=== PATIENT | female | born 1960 | race Caucasian/White ===

== ENCOUNTER → 2017-12-31 20:13 | Outpatient (REF) | payer BC, MEDICARE, SELFPAY | LOC: LAB 20:13 | PROVIDERS: Visit Provider Nurse Practitioner Family | DX: J00 Acute nasopharyngitis [common cold] (principal) ==

== ENCOUNTER → 2018-10-20 09:55 | Outpatient (CLI) | payer MEDICARE, BC, SELFPAY ==
--- NOTE | 2018-10-20 10:02 | MM_ITS ---
MM Dig screening mamm BI w/CAD CAD Screening COMPARISON: Digital mammograms with CAD 02/10/2017 and 03/10/2013 INDICATION: There is no personal or family history of breast cancer TECHNIQUE: Standard CC and MLO images were obtained. R2 CAD reviewed. FINDINGS: Scattered fibroglandular densities are seen throughout both breasts. There are multiple mole markers left breast. There are multiple scattered benign-appearing microcalcifications in each breast. There is a stable asymmetric density upper outer quadrant left breast likely focal asymmetric glandular tissue. There is no suspicious lesion and there are no suspicious microcalcifications. IMPRESSION: Fibrofatty parenchyma no suspicious lesion seen BI-RADS Category: 2 Benign Finding(s) RECOMMENDED FOLLOW-UP: 1YR - 1 YEAR FOLLOW-UP (A letter has been sent to the patient regarding results of the study.)
== END ==
PROVIDERS: PCP Emergency Medicine; Visit Provider Emergency Medicine
DX: Z12.31 Encounter for screening mammogram for malignant neoplasm of breast (principal)
CPT/HCPCS: 77067

== ENCOUNTER → 2018-11-08 10:53 | Outpatient (CLI) | payer MEDICARE, BC, SELFPAY ==
--- NOTE | 2018-11-08 10:57 | XR_ITS ---
XR knee RT 3V HISTORY: ITS.REASON: pain ORDERING PHYSICIAN: Kristen Dixon APRN PATIENT AGE: 57 years COMPARISON: 06/05/2010 FINDINGS: There are mild osteoarthritic changes involving all 3 compartments slightly worse than when compared to the previous exam. No fracture or dislocation. No lytic or blastic change. IMPRESSION: Mild osteoarthritis slightly worse
--- NOTE | 2018-11-08 10:57 | XR_ITS ---
XR knee LT 3V HISTORY: ITS.REASON: pain ORDERING PHYSICIAN: Kristen Dixon APRN PATIENT AGE: 57 years COMPARISON: None FINDINGS: No fracture or dislocation. No lytic or blastic change. Normal mineralization. Its mild osteoarthritic changes involve all 3 compartments No other significant findings IMPRESSION: Mild osteoarthritis otherwise negative
[2018-11-08 11:58] LABS: Erythrocyte Sedimentation Rate 10 mm/hr (0-30)
[2018-11-08 14:20] LABS: C-Reactive Protein 0.5 mg/L (0.0-0.9)
[2018-11-09 14:18] LABS: Anti-Centromere B Antibodies <0.2 AI (0.0-0.9); Anti-Jo-1 <0.2 AI (0.0-0.9); Anti-Smith Antibody <0.2 AI (0.0-0.9); Antichromatin Antibodies <0.2 AI (0.0-0.9); Antiscleroderma-70 Antibodies <0.2 AI (0.0-0.9); RNP Antibodies 0.3 AI (0.0-0.9); Sjogren's Anti-SS-A <0.2 AI (0.0-0.9); Sjogren's Anti-SS-B <0.2 AI (0.0-0.9)
[2018-11-11 06:25] LABS: Anti-Cyclic Citrullinated Pept <1 units (0-19); Anti-DNA (DS) Ab Qn <1 IU/mL (0-9); RA Latex Turbid. <10.0 IU/mL (0.0-13.9)
== END ==
PROVIDERS: PCP Nurse Practitioner Family; Visit Provider Nurse Practitioner Family
DX: M25.561 Pain in right knee (principal); M25.562 Pain in left knee
CPT/HCPCS: 36415; 73562; 85651; 86140; 86200; 86225; 86235; 86431

== ENCOUNTER → 2018-12-02 08:35 | Outpatient (CLI) | payer MEDICARE, BC, SELFPAY ==
--- NOTE | 2018-12-02 08:39 | XR_ITS ---
XR knee LT 4V HISTORY: ITS.REASON: bilateral knee pain ORDERING PHYSICIAN: Alphonse Cole MD PATIENT AGE: 57 years COMPARISON: 11/08/2018. FINDINGS: Bone density remains normal. The moderate narrowing of the medial joint compartment with condyle and plateau spurring remains stable. There is stable mild varus angulation. There are small posterior patellar spur. There is no acute fracture or joint effusion. Soft tissues are otherwise unremarkable. Impression: No change. Osteoarthritis.
--- NOTE | 2018-12-02 08:39 | XR_ITS ---
XR knee RT 4V HISTORY: ITS.REASON: bilateral knee pain ORDERING PHYSICIAN: Alphonse Cole MD PATIENT AGE: 57 years COMPARISON: 11/08/2018. FINDINGS: Bone density remains normal. There are stable moderate narrowing of the medial joint compartment with condyle and plateau spurring. There is posterior patellar spurs well. There is no acute fracture or joint effusion. There is stable mild varus angulation. Soft tissues are unremarkable. Impression: No change. Osteoarthritis as described.
== END ==
PROVIDERS: PCP Emergency Medicine; Visit Provider Orthopaedic Surgery
DX: M25.561 Pain in right knee (principal); M25.562 Pain in left knee
CPT/HCPCS: 73564

== ENCOUNTER → 2019-04-28 12:16 | Outpatient (CLI) | payer MEDICARE, BC, SELFPAY ==
--- NOTE | 2019-04-28 | ECG_ITS ---
APPROVED REPORT Exam: Resting ECG HR:76 bpm ECG Measurements Heart Rate 76 AXES [place] 162 P 48 QRSd 128 QRS -51 QT 402 T 20 QTc 452 <Conclusion> Normal sinus rhythm Right bundle branch block Left anterior fascicular block Bifascicular block Minimal voltage criteria for LVH, may be normal variant Abnormal ECG Electronically signed by : Maikel Parks, 05/01/2019 16:58:06
[2019-04-28 13:13] LABS: Basophils % 0.2 % (0.1-2.0); Eosinophils # 0.1 K/mm3 (0.0-0.4); Eosinophils % 0.5 % (0.1-12.0); Hematocrit 45.2 % (37.0-47.0); Lymphocytes # 2.2 K/mm3 (0.7-4.5); Lymphocytes % 21.4 % (10-50); Mean Corpuscular HGB Conc 33.1 g/dL (31.8-35.4); Mean Corpuscular Hemoglobin 30.6 pg (27.0-31.2); Mean Corpuscular Volume 92.3 fl (81-99); Mean Platelet Volume 8.5 fl (7.4-10.4); Monocytes # 0.4 K/mm3 (0.1-1.0); Monocytes % 3.9 % (1.7-9.3); Neutrophils # 7.7 K/mm3 (1.8-7.8); Neutrophils % 73.9 % (37.0-80.0); Platelet Count 220 K/mm3 (142-424); Red Blood Count 4.89 M/mm3 (4.20-5.40); Red Cell Distribution Width 13.3 % (11.5-17.5); White Blood Count 10.5 K/mm3 (4.8-10.8)
[2019-04-28 14:44] LABS: Alanine Aminotransferase 22 U/L (12-78); Albumin Level 3.3 gm/dL (3.4-5.0); Alkaline Phosphatase 81 U/L (46-116); Anion Gap 10.5 mEq/L (5-15); Aspartate Amino Transferase 12 U/L (15-37); Bilirubin,Total 0.3 mg/dL (0.2-1.0); Blood Urea Nitrogen 15 mg/dL (7-18); Carbon Dioxide 30 mmol/L (21.0-32.0); Chloride 108 mmol/L (98-107); Chol/HDL Ratio 2.6 (1-3.5); Cholesterol 123 mg/dL (140-200); Creatinine,Serum 0.89 mg/dL (0.55-1.02); Estimated Glomerular Filt Rate 65 ml/min (>60); GFR (African American) 79 ML/MIN (>60); Globulin 3.2 gm/dl (1.3-3.2); Glucose 137 mg/dL (74-106); HDL Cholesterol 47 mg/dL (29-89); LDL Cholesterol 41 mg/dL (0-130); Potassium 4.5 mmoL/L (3.5-5.1); Sodium 144 mmol/L (136-145); Thyroid Stimulating Hormone 1.22 uIU/ml (0.358-3.740); Total Protein,Serum 6.5 gm/dL (6.4-8.2); Triglycerides 174 mg/dL (30-200); VLDL Cholesterol 35 mg/dL (0-40)
[2019-04-28 15:11] LABS: Hemoglobin A1C 6.8 % (0.0-7.0)
== END ==
PROVIDERS: PCP Emergency Medicine; Visit Provider Nurse Practitioner Psychiatric/Mental Health
DX: F20.1 Disorganized schizophrenia (principal); Z79.899 Other long term (current) drug therapy
CPT/HCPCS: 36415; 80053; 80061; 83036; 84443; 85025; 93005

== ENCOUNTER → 2020-01-29 12:52 | Outpatient (CLI) | payer MEDICARE, BC, SELFPAY ==
--- NOTE | 2020-01-29 12:58 | XR_ITS ---
PROCEDURE: XR KNEE LT 4V CLINICAL INDICATION: left knee pain COMPARISON: No exams were available for comparison FINDINGS: No fracture or dislocation. No lytic or blastic change. There is normal mineralization. Moderate osteoarthritic changes are present at the medial compartment and patellofemoral joint. Other findings:None. IMPRESSION: Moderate osteoarthritis Dictated by: Rito Tamayo MD 01/29/2020 13:25 Rito Tamayo MD in [place] 01/29/2020 13:25
--- NOTE | 2020-01-29 12:58 | XR_ITS ---
PROCEDURE: XR KNEE RT 4V CLINICAL INDICATION: right knee pain COMPARISON: No exams were available for comparison FINDINGS: No fracture or dislocation. No lytic or blastic change. There is normal mineralization. There are moderate osteoarthritic changes at the medial compartment and patellofemoral joint. Other findings:Prominent osteophytes are present at the distal femur posteriorly and proximal tibia as well as posterior inferior patella IMPRESSION: Moderate osteoarthritis Dictated by: Rito Tamayo MD 01/29/2020 13:24 Rito Tamayo MD in [place] 01/29/2020 13:24
== END ==
PROVIDERS: PCP Emergency Medicine; Visit Provider Orthopaedic Surgery
DX: M17.12 Unilateral primary osteoarthritis, left knee (principal); M17.11 Unilateral primary osteoarthritis, right knee
CPT/HCPCS: 73564

== ENCOUNTER → 2020-08-30 14:48 | Outpatient (CLI) | payer MEDICARE, BC, SELFPAY ==
[2020-08-30 15:11] LABS: Basophils % 0.4 % (0.1-2.0); Eosinophils % 0.2 % (0.1-12.0); Hematocrit 45.7 % (37.0-47.0); Hemoglobin 14.7 g/dL (12.2-16.2); Lymphocytes # 2.7 K/mm3 (0.7-4.5); Mean Corpuscular HGB Conc 32.1 g/dL (31.8-35.4); Mean Corpuscular Hemoglobin 29.6 pg (27.0-31.2); Mean Corpuscular Volume 92.2 fl (81-99); Mean Platelet Volume 9.7 fl (7.4-10.4); Monocytes # 0.4 K/mm3 (0.1-1.0); Monocytes % 6.2 % (1.7-9.3); Neutrophils # 2.8 K/mm3 (1.8-7.8); Neutrophils % 47.2 % (37.0-80.0); Platelet Count 264 K/mm3 (142-424); Red Blood Count 4.95 M/mm3 (4.20-5.40); Red Cell Distribution Width 13.4 % (11.5-17.5); White Blood Count 5.9 K/mm3 (4.8-10.8)
[2020-08-30 15:13] LABS: Alanine Aminotransferase 16 U/L (12-78); Albumin Level 3.7 g/dl (3.5-5.0); Albumin/Globulin Ratio 1.3 (1.1-1.8); Alkaline Phosphatase 74 U/L (38-126); Anion Gap 10.5 mEq/L (5-15); Aspartate Amino Transferase 22 U/L (14-36); Bilirubin,Total 0.6 mg/dl (0.2-1.3); Blood Urea Nitrogen 17 mg/dl (7-17); Calcium 9.2 mg/dl (8.4-10.2); Carbon Dioxide 28 mmol/L (22.0-30.0); Chloride 107 mmol/L (98-107); Chol/HDL Ratio 2.5 (1-3.5); Cholesterol 131 mg/dl (140-200); Estimated Glomerular Filt Rate 73 ml/min (>60); GFR (African American) 89 ML/MIN (>60); Globulin 2.8 g/dL (1.3-3.2); Glucose 99 mg/dl (74-100); HDL Cholesterol 53 mg/dl (40-60); Potassium 4.5 mmoL/L (3.5-5.1); Sodium 141 mmol/L (136-145); Total Protein,Serum 6.5 g/dl (6.3-8.2); Triglycerides 87 mg/dl (30-150); VLDL Cholesterol 17 mg/dL (0-40)
[2020-08-30 15:24] LABS: Direct LDL Cholesterol 47.08 mg/dL (100-129)
[2020-08-30 15:29] LABS: 25-OH Vitamin D, Total 26.2 ng/mL (30-100)
[2020-08-30 15:30] LABS: Free T4 (Free Thyroxine) 1.22 ng/dl (0.78-2.19)
[2020-08-30 15:44] LABS: Thyroid Stimulating Hormone 1.75 uIU/mL (0.465-4.68)
== END ==
PROVIDERS: Visit Provider Emergency Medicine
DX: E66.9 Obesity, unspecified (principal); Z00.00 Encounter for general adult medical examination without abnormal findings; I10 Essential (primary) hypertension; E55.9 Vitamin D deficiency, unspecified; E78.5 Hyperlipidemia, unspecified; Z68.35 Body mass index [BMI] 35.0-35.9, adult
CPT/HCPCS: 80053; 80061; 82306; 84439; 84443; 85025

== ENCOUNTER → 2020-09-06 08:39 | Outpatient (CLI) | payer MEDICARE, BC, SELFPAY ==
--- NOTE | 2020-09-06 08:39 | MM_ITS ---
PROCEDURE: MM DIG SCREENING MAMM BI W/CAD Digital Breast Tomosynthesis Included CLINICAL INDICATION: screening There is no personal or family history of breast cancer COMPARISON: MG DMSB DIG MAMM-SCREEN BOBO from 03/10/2013 MG DMSB DIG MAMM-SCREEN BOBO W/CAD from 02/10/2017 MG DIG MAMM-SCREEN BOBO from 10/20/2018 TECHNIQUE: Standard CC and MLO images and 3D Tomosynthesis was obtained. R2 CAD reviewed. FINDINGS: Diffuse scattered fibroglandular densities are seen throughout both breast. There are multiple iqy-ckovgodw-cx-count appearing microcalcifications in each breast. There is a stable asymmetric density upper central portion left breast likely asymmetric glandular elements. There is a mole marker left breast. There are stable tiny benign-appearing nodular densities right breast. There is no suspicious lesion in either breast and no suspicious microcalcifications. There are fatty replaced nodes in both axilla. IMPRESSION: Fibrofatty parenchyma with no suspicious lesions seen BI-RAD Category: 2 Benign Finding(s) FOLLOW-UP: 1YR 1 Year Follow-up (A letter has been sent to the patient regarding results of the study.) Dictated by: Dr. Dimitris Brooke MD 09/11/2020 20:04 Dr. Dimitris Brooke MD in [place] 09/11/2020 20:04
== END ==
PROVIDERS: PCP Emergency Medicine; Visit Provider Emergency Medicine
DX: Z12.31 Encounter for screening mammogram for malignant neoplasm of breast (principal)
CPT/HCPCS: 77063; 77067

== ENCOUNTER → 2021-01-27 17:45 | Outpatient (CLI) | payer MEDICARE, BC, SELFPAY ==
[2021-01-27 19:52] LABS: Basophils # 0.1 K/mm3 (0-0.2); Basophils % 0.9 % (0.1-2.0); Eosinophils # 0.1 K/mm3 (0.0-0.4); Eosinophils % 0.9 % (0.1-12.0); Hematocrit 47.3 % (37.0-47.0); Hemoglobin 14.6 g/dL (12.2-16.2); Lymphocytes # 2.4 K/mm3 (0.7-4.5); Mean Corpuscular HGB Conc 30.9 g/dL (31.8-35.4); Mean Corpuscular Hemoglobin 30.5 pg (27.0-31.2); Mean Corpuscular Volume 98.8 fl (81-99); Mean Platelet Volume 10.1 fl (7.4-10.4); Monocytes # 0.4 K/mm3 (0.1-1.0); Monocytes % 5.9 % (1.7-9.3); Neutrophils # 4.3 K/mm3 (1.8-7.8); Neutrophils % 59.2 % (37.0-80.0); Platelet Count 287 K/mm3 (142-424); Red Blood Count 4.79 M/mm3 (4.20-5.40); Red Cell Distribution Width 13.2 % (11.5-17.5); White Blood Count 7.3 K/mm3 (4.8-10.8)
[2021-01-27 19:58] LABS: Chloride 102 mmol/L (98-107); Potassium 5.2 mmoL/L (3.5-5.1); Sodium 143 mmol/L (136-145)
[2021-01-27 20:00] LABS: Blood Urea Nitrogen 13 mg/dl (7-17); Estimated Glomerular Filt Rate 73 ml/min (>60); GFR (African American) 88 ML/MIN (>60)
[2021-01-27 20:01] LABS: Alanine Aminotransferase 25 U/L (12-78); Albumin Level 4.4 g/dl (3.5-5.0); Albumin/Globulin Ratio 1.5 (1.1-1.8); Alkaline Phosphatase 75 U/L (38-126); Anion Gap 15.2 mEq/L (5-15); Aspartate Amino Transferase 30 U/L (14-36); Bilirubin,Total 0.5 mg/dl (0.2-1.3); Carbon Dioxide 31 mmol/L (22.0-30.0); Chol/HDL Ratio 1.9 (1-3.5); Cholesterol 160 mg/dl (140-200); Glucose 105 mg/dl (74-100); HDL Cholesterol 86 mg/dl (40-60); Total Protein,Serum 7.4 g/dl (6.3-8.2); Triglycerides 101 mg/dl (30-150); VLDL Cholesterol 20 mg/dL (0-40)
[2021-01-27 20:18] LABS: Free T4 (Free Thyroxine) 1.17 ng/dl (0.78-2.19)
[2021-01-27 20:21] LABS: 25-OH Vitamin D, Total 99.3 ng/mL (30-100)
[2021-01-27 20:31] LABS: Thyroid Stimulating Hormone 1.44 uIU/mL (0.465-4.68)
[2021-01-27 20:53] LABS: Direct LDL Cholesterol 53.93 mg/dL (100-129)
== END ==
PROVIDERS: Visit Provider Emergency Medicine
DX: E66.9 Obesity, unspecified (principal); I10 Essential (primary) hypertension; R32 Unspecified urinary incontinence; E55.9 Vitamin D deficiency, unspecified; Z68.37 Body mass index [BMI] 37.0-37.9, adult
CPT/HCPCS: 80053; 80061; 82306; 84439; 84443; 85025; 87086

== ENCOUNTER → 2021-05-13 10:27 | Outpatient (CLI) | payer MEDICARE, BC, SELFPAY ==
--- NOTE | 2021-05-13 10:35 | XR_ITS ---
PROCEDURE: XR KNEE RT 4V CLINICAL INDICATION: right knee pain COMPARISON: CR XR KNEE LT 4V from 01/29/2020 CR XR KNEE RT 4V from 01/29/2020 FINDINGS: Moderate osteoarthritic changes are present at the medial compartment and patellofemoral joint with mild osteoarthritis of the lateral compartment. Prominent hypertrophic changes are present at the tibial spines and there is bony spurring along the posterior patella and distal femur and proximal tibia. No fracture or dislocation. No lytic or blastic change. Sclerotic focus is present at the left femoral metaphyseal region and possibly due to a bone island IMPRESSION: No change moderate osteoarthritis of the right knee Dictated by: Rito Tamayo MD 05/13/2021 14:45 Rito Tamayo MD in [place] 05/13/2021 14:45
--- NOTE | 2021-05-13 10:35 | XR_ITS ---
PROCEDURE: XR KNEE LT 4V CLINICAL INDICATION: left knee pain COMPARISON: CR XR KNEE LT 4V from 01/29/2020 CR XR KNEE RT 4V from 01/29/2020 FINDINGS: No fracture or dislocation. No lytic or blastic change. There is normal mineralization. There are moderate osteoarthritic changes of the left knee with loss of joint space medially and osteophyte formation. There is some osteosclerosis noted along the medial aspect of the proximal tibia. Spurring is noted of the tibial spines. Moderate osteoarthritis also of the patellofemoral joint with mild osteoarthritis of the lateral compartment. Overall no significant change. IMPRESSION: Moderate osteoarthritic changes the left knee overall not significantly changed. Dictated by: Rito Tamayo MD 05/13/2021 14:59 Rito Tamayo MD in [place] 05/13/2021 14:59
== END ==
PROVIDERS: PCP Emergency Medicine; Visit Provider Orthopaedic Surgery
DX: M25.562 Pain in left knee (principal); M25.561 Pain in right knee
CPT/HCPCS: 73564

== ENCOUNTER → 2021-12-16 16:24 | Outpatient (CLI) | payer MEDICARE, BC, SELFPAY ==
--- NOTE | 2021-12-16 16:30 | XR_ITS ---
PROCEDURE INFORMATION: Exam: XR Right Knee Exam date and time: 12/16/2021 4:43 PM Age: 60 years old Clinical indication: Pain; Knee; Right; Additional info: Knee pain TECHNIQUE: Imaging protocol: Radiologic exam of the Right knee. Views: 4 or more views. COMPARISON: CR XR KNEE RT 4V 05/13/2021 10:36 AM FINDINGS: Bones/joints: Moderate to marked degenerative arthritic type changes medial knee compartment. Mild-moderate patellofemoral degenerative changes. Findings not significantly changed compared with the 05/13/2021 examination. Soft tissues: Mild regions of prepatellar pretibial bursitis. IMPRESSION: 1. Moderately severe degenerative osteoarthritis medial knee compartment. 2. No evidence of acute osseous injury. 3. Recommend follow-up with magnetic resonance imaging to further evaluate for meniscal and/or ligamentous injury.
== END ==
PROVIDERS: PCP Emergency Medicine; Visit Provider Orthopaedic Surgery
DX: M25.561 Pain in right knee (principal)
CPT/HCPCS: 73564

== ENCOUNTER → 2022-01-19 14:10 | Outpatient (CLI) | payer MEDICARE, BC, SELFPAY | PROVIDERS: PCP Emergency Medicine; Visit Provider Nurse Practitioner Psychiatric/Mental Health | DX: F20.1 Disorganized schizophrenia (principal) ==

== ENCOUNTER → 2022-03-06 14:00 | Outpatient (CLI) | payer MEDICARE, BC, SELFPAY ==
[2022-03-06 18:29] LABS: Basophils # 0.1 K/mm3 (0-0.2); Basophils % 0.9 % (0.1-2.0); Eosinophils # 0.1 K/mm3 (0.0-0.4); Hematocrit 44.4 % (37.0-47.0); Hemoglobin 14.7 g/dL (12.2-16.2); Lymphocytes % 24.7 % (10-50); Mean Corpuscular HGB Conc 33.1 g/dL (31.8-35.4); Mean Corpuscular Hemoglobin 31.6 pg (27.0-31.2); Mean Corpuscular Volume 95.6 fl (81-99); Mean Platelet Volume 9.4 fl (7.4-10.4); Monocytes # 0.4 K/mm3 (0.1-1.0); Monocytes % 4.7 % (1.7-9.3); Neutrophils # 5.5 K/mm3 (1.8-7.8); Neutrophils % 68.7 % (37.0-80.0); Platelet Count 243 K/mm3 (142-424); Red Blood Count 4.64 M/mm3 (4.20-5.40)
[2022-03-06 18:32] LABS: Alanine Aminotransferase 23 U/L (12-78); Albumin Level 3.6 g/dl (3.5-5.0); Albumin/Globulin Ratio 1.4 (1.1-1.8); Alkaline Phosphatase 102 U/L (38-126); Anion Gap 11.7 mEq/L (5-15); Aspartate Amino Transferase 27 U/L (14-36); Blood Urea Nitrogen 18 mg/dl (7-17); Calcium 8.8 mg/dl (8.4-10.2); Carbon Dioxide 31 mmol/L (22.0-30.0); Chloride 102 mmol/L (98-107); Chol/HDL Ratio 2.7 (1-3.5); Cholesterol 132 mg/dl (140-200); Estimated Glomerular Filt Rate 63 ml/min (>60); GFR (African American) 77 ML/MIN (>60); Globulin 2.5 g/dL (1.3-3.2); Glucose 158 mg/dl (74-100); HDL Cholesterol 49 mg/dl (40-60); Potassium 4.7 mmoL/L (3.5-5.1); Sodium 140 mmol/L (136-145); Total Protein,Serum 6.1 g/dl (6.3-8.2); Triglycerides 269 mg/dl (30-150); VLDL Cholesterol 54 mg/dL (0-40)
[2022-03-06 18:33] LABS: Bilirubin,Total < 0.1 mg/dl (0.2-1.3)
[2022-03-06 18:42] LABS: Direct LDL Cholesterol 48.47 mg/dL (100-129)
[2022-03-06 18:49] LABS: Hemoglobin A1C 6.1 % (4.0-6.0)
== END ==
PROVIDERS: PCP Family Medicine; Visit Provider Family Medicine
DX: E78.5 Hyperlipidemia, unspecified (principal); R73.09 Other abnormal glucose
CPT/HCPCS: 80053; 80061; 83036; 85025

== ENCOUNTER 2022-06-16 10:52 | Observation (INO) | payer MEDICARE, BC, SELFPAY ==
--- NOTE | 2022-06-02 13:39 | SW/DCPLANNER ---
Addendum entered by Paige Cai RN 06/17/22 15:44: Patient clinical faxed to [facility] this AM. Patient has been accepted and will discharge to [facility] today. Addendum entered by Heather Pineda 06/16/22 11:45: Debby sena/ [facility] stated that she will have a bed available for this patient once medically stable for discharge. Addendum entered by Heather Pineda 06/02/22 13:48: Patient's POA contacted me back and stated that they are interested in [facility] at time of discharge. I will contact [facility] and fax patient information on this patient. POA also stated that if [facility] can not accept they would be interested in [facility] or [facility]. Original Note: I attempted to contact this patient regarding upcoming TKA: no answer VM left at this time.
[2022-06-09 14:34] VITALS: BMI 38.7
[2022-06-16] VITALS (24 sets, daily range): BP systolic 107–170; BP diastolic 58–99; PULSE 66–92; RESP 12–20; TEMP 36.1–43; O2SAT 92–100; BMI 41.4
--- NOTE | 2022-06-16 09:24 | XR_ITS ---
FINAL REPORT CLINICAL HISTORY: pre-op FINDINGS: SINGLE-VIEW CHEST The heart size is normal. The mediastinum is normal. The lungs are clear. There is no pneumothorax. IMPRESSION: No acute cardiopulmonary process. Reviewed, Interpreted and Dictated by Fortino Brown III, MD Transcribed by Virginia Lane Authenticated and [facility]
--- NOTE | 2022-06-16 09:50 | PC.NURSE ---
Lab at bedside, urine sample given to lab.
--- NOTE | 2022-06-16 09:58 | P.PN_ITS ---
[facility] Disclaimer: The information contained in this section may have been updated after the patient was seen, as this information can be updated by other users. Medical History History of stroke Schizo affective schizophrenia Surgical History No significant past surgical history Family History Other No significant family history Social History Smoking Status: Former smoker alcohol intake: never substance use type: denies use current occupational status: disabled Travel in the last 8 weeks: None household members: family and caregiver caffeine: No [facility] Anesthesia Checklist Patient Identification Patient Identification: Arm Band and Verbal (Name & ) Structural Data Admitted From: Home Planned Operative Procedure/s: TKA Consent for Planned Operative Procedure(s) Verified: Yes NPO Status Verified Time NPO: 00:00 Additional verifications Anesthesia Reactions: No Airway Assessment C-Spine Mobility Assessed: Yes TMJ Mobility Assessed: Yes Dentition: Good Dentition Neurological Assessment Level of Consciousness: Awake Hx Seizures: No Numbness or tingling in extremities: No Anesthesia Plan Anesthesia Risk discussed: Yes Anesthesia Plan: Verified ASA Class: III Anesthesia Type: Spinal
[2022-06-16 10:09] LABS: Basophils # 0.1 K/mm3 (0-0.2); Basophils % 0.8 % (0.1-2.0); Eosinophils # 0.1 K/mm3 (0.0-0.4); Eosinophils % 1.4 % (0.1-12.0); Hematocrit 46.9 % (37.0-47.0); Hemoglobin 14.6 g/dL (12.2-16.2); Lymphocytes # 1.8 K/mm3 (0.7-4.5); Lymphocytes % 19.7 % (10-50); Mean Corpuscular HGB Conc 31.1 g/dL (31.8-35.4); Mean Corpuscular Volume 96.4 fl (81-99); Mean Platelet Volume 8.6 fl (7.4-10.4); Monocytes # 0.4 K/mm3 (0.1-1.0); Monocytes % 4.6 % (1.7-9.3); Neutrophils # 6.7 K/mm3 (1.8-7.8); Neutrophils % 73.4 % (37.0-80.0); Platelet Count 256 K/mm3 (142-424); Red Blood Count 4.86 M/mm3 (4.20-5.40); Red Cell Distribution Width 13.3 % (11.5-17.5); White Blood Count 9.1 K/mm3 (4.8-10.8)
[2022-06-16 10:13] LABS: Chloride 104 mmol/L (98-107); Potassium 4.2 mmoL/L (3.5-5.1); Sodium 142 mmol/L (136-145)
[2022-06-16 10:16] LABS: Alanine Aminotransferase 28 U/L (12-78); Albumin Level 4.1 g/dl (3.5-5.0); Albumin/Globulin Ratio 1.4 (1.1-1.8); Alkaline Phosphatase 111 U/L (38-126); Anion Gap 10.2 mEq/L (5-15); Aspartate Amino Transferase 32 U/L (14-36); Bilirubin,Total 0.8 mg/dl (0.2-1.3); Blood Urea Nitrogen 13 mg/dl (7-17); Calcium 9.5 mg/dl (8.4-10.2); Carbon Dioxide 32 mmol/L (22.0-30.0); Creatinine Clearance Estimated 89 mL/min (50-200); Estimated Glomerular Filt Rate 56 ml/min (>60); GFR (African American) 68 ML/MIN (>60); Glucose 166 mg/dl (74-100); Total Protein,Serum 7.1 g/dl (6.3-8.2)
--- NOTE | 2022-06-16 12:24 | EXP.ANES.I ---
[facility] Anesthesia Record Part I Anesthesia Record I Intake, IV Amount: 400 Estimated blood loss (mL): 10 Urine output (mL): 0 Blood Pressure: 107/73 SaO2: 92 Pulse Rate: 73 Respiratory Rate: 20 Temperature: 97.4 F Patient is:: Drowsy and Oral/Nasal airway Stable to PACU at:: 12:23
--- NOTE | 2022-06-16 12:32 | HMH.PHAINT1 ---
Pharmacy Intervention Comments: MEDICATION RECONCILIATION COMPLETED ON PATIENT USING EXTERNAL FILL HISTORY FROM PHARMACY. -ADAN TUTTLE, PRIMOD
--- NOTE | 2022-06-16 12:32 | EXP.OP.NOTE ---
Date of procedure: 06/16/22 Pre-op Diagnosis:: Right knee osteoarthritis Post-op Diagnosis:: Right knee osteoarthritis Procedure performed:: Right total knee arthroplasty Surgeon:: Micheal Alcantara MD Splitting Machine Feeder(s):: RENETTA Maria SUPERINTENDENT HORTICULTURE:: Yandel Wilson Anesthesia: GETA and local Estimated blood loss (mL): 5 Clinical Note:: Jackie is a pleasant 61-year-old female with activity limiting right knee pain secondary to osteoarthritis that is affecting her quality of life. She has failed exhaustive conservative treatment measures. We discussed all the risks, benefits and alternatives to right total knee arthroplasty and she agreed to proceed. Surgical consent form was signed. Operative findings:: Severe right knee tricompartmental degenerative changes with varus deformity Operative note:: The patient was seen in the preoperative holding area. The right knee was marked to confirm the correct operative site. She was seen by anesthesia. She received Ancef 2 g ibuprofen antibiotics within 1 hour incision time as well as TXA just prior to the incision and as were closing to help minimize bleeding. She was brought back to the OR. Spinal anesthesia was attempted but was unsuccessful. Therefore general anesthesia was performed without difficulty. Bump was placed underneath the right hip. Nonsterile tourniquet applied to the right thigh. Right lower extremity was prepped and draped in usual sterile fashion. Timeout performed to confirm right total knee arthroplasty and patient Jackie Saldivar. The right lower extremity was exsanguinated and Esmarch. Tourniquet was inflated to 300 mmHg. We made a midline incision with a 10 blade scalpel. Full-thickness medial lateral flaps were elevated. We then made a medial parapatellar arthrotomy. Patella was everted. Patella fat pad and anterior femoral fat pads were excised. Marginal osteophytes removed. Medial release was performed. Z retractors placed medially and laterally. The distal femur was then drilled and the intramedullary distal femoral cutting guide was pinned in place set at a 5 degree valgus cut for a 9-1/2 mm cut. This cut was then made with oscillating saw. The femur was then sized to a size 5 set at 3 degrees of external rotation. The 4-in-1 cutting guide was pinned in place. Anterior and posterior cuts were made as were the chamfer cuts. We then turned our attention to the tibia. Tibia was subluxed anteriorly and PCL retractor was placed as were medial and lateral Hohmann retractors. We used the extra medullary tibial cutting guide set at a 3 degree posterior slope for the proximal tibial cut. 5 mm of bone was removed from the low medial side and a centimeter from the high lateral side. Medial and lateral menisci were then excised as were posterior osteophytes. Flexion and extension gaps were checked and with a 9 mm block we achieved full extension and flexion with excellent alignment. The tibia was sized to a size 3 tibial tray centered off the medial third of the tibial tubercle. The tray was pinned in place. We impacted the tibial fins. We then trialed with a size 5 femur after making the box cuts with the reamer and punch. Along with the size 5 femur we trialed with a size 9 poly and the 3 tibial tray. With these trial components in place we achieved full extension of flexion with excellent alignment. Patellar cut was then made. Patella was sized to 22 mm in thickness we made a 9 mm patellar cut with the reciprocal saw. A 29 trial was placed and patella drill holes were made. With the trial button in place there was excellent tracking. Trial components removed. Final components opened the back table. Posterior capsule was injected with 20 cc of half percent Naropin and 5 mg of morphine. Cement was mixed on the back table. The knee was copiously irrigated with Pulsavac lavage. The knee was then thoroughly dried and a bone plug was placed in the distal femoral drill hole. Cement
--- NOTE | 2022-06-16 12:40 | XR_ITS ---
FINAL REPORT CLINICAL HISTORY: Status post right knee replacement FINDINGS: Two views of the right knee were obtained. There are postoperative changes from knee arthroplasty without complication. Soft tissue air is present. There is no evidence of fracture or dislocation. The bony alignment is normal. There is no evidence of joint effusion. IMPRESSION: Postoperative change from knee arthroplasty without complication. Reviewed, Interpreted and Dictated by Fortino Brown III, MD Transcribed by Ally Mills Authenticated and [facility]
--- NOTE | 2022-06-16 13:22 | EXP.HP ---
History of Present Illness *Admission Date: 06/16/22 *Reason for visit:: Status post knee replacement *History of present illness: Ms. Saldivar is a 61-year-old female with history of obesity, hypertension, chronic right knee pain, and schizophrenia who is followed closely by orthopedics. She was brought in electively today for total right knee arthroplasty due to severe right knee pain and arthritis limiting mobility and affecting her quality of life. She has failed exhaustive conservative treatment measures. Medicine consulted for admission and medical management. Patient tolerated procedure well without difficulty or complication. She is evaluated after arriving to the floor. Hemodynamically stable. Only complaint is mild right knee pain. Denies any chest pain, shortness of breath, nausea, vomiting, diarrhea. Reports her last bowel movement was yesterday. Is fatigued and awakens to answer questions but falls back to sleep. [facility] Disclaimer: The information contained in this section may have been updated after the patient was seen, as this information can be updated by other users. Medical History Emphysema/COPD History of stroke Schizo affective schizophrenia Surgical History History of tonsillectomy Family History No significant family history Social History Smoking Status: Former smoker alcohol intake: former substance use type: denies use current occupational status: disabled Travel in the last 8 weeks: None household members: family and caregiver caffeine: No Review of Systems Review of Systems Review of systems (narrative): 14 point review of systems performed, pertinent positives and negatives as per HPI Meds Home Medications and Allergies Home Medications Medication Instructions Recorded Confirmed Type paliperidone 6 mg tablet,extended 6 mg PO DAILY MOOD 06/13/21 06/16/22 History release 24 hr atorvastatin 40 mg tablet 40 mg PO DAILY Cholesterol 06/09/22 06/16/22 History cholecalciferol (vitamin D3) 1,250 1,250 mcg PO WEEKLY Supplement 06/09/22 06/16/22 History mcg (50,000 unit) capsule coenzyme Q10 100 mg capsule 100 mg PO DAILY Supplement 06/09/22 06/16/22 History (CoQ-10) trazodone 50 mg tablet 75 mg PO HS SLEEP 06/09/22 06/16/22 History aspirin 81 mg tablet,delayed 81 mg PO DAILY HEART HEALTH 06/16/22 06/16/22 History release venlafaxine 150 mg tablet,extended 150 mg PO DAILY MOOD 06/16/22 06/16/22 History release 24 hr venlafaxine 37.5 mg 37.5 mg PO DAILY MOOD 06/16/22 06/16/22 History capsule,extended release 24 hr New Prescriptions to Start Prescriptions: Allergies Allergy/AdvReac Type Severity Reaction Status Date / Time No Known Allergies Allergy Verified 06/16/22 09:17 Exam Data for Last 24 hours Vital signs and Labs for Last 24 Hours: Temp Pulse Resp BP Pulse Ox 97.4 F L 84 16 145/64 H 95 06/16/22 12:26 06/16/22 13:13 06/16/22 13:13 06/16/22 13:13 06/16/22 13:13 Laboratory Results - last 24 hr 06/16/22 09:55: WBC 9.1, RBC 4.86, Hgb 14.6, Hct 46.9, MCV 96.4, MCH 30.0, MCHC 31.1 L, RDW 13.3, Plt Count 256, MPV 8.6, Neut % (Auto) 73.4, Lymph % (Auto) 19.7, Rooks % (Auto) 4.6, Eos % (Auto) 1.4, Baso % (Auto) 0.8, Neut # (Auto) 6.7, Lymph # (Auto) 1.8, Rooks # (Auto) 0.4, Eos # (Auto) 0.1, Baso # (Auto) 0.1 06/16/22 09:55: Sodium 142, Potassium 4.2, Chloride 104, Carbon Dioxide 32 H, Anion Gap 10.2, BUN 13, Creatinine 1.00, Estimated Creat Clear 89, Estimated GFR 56 L, Est GFR ( Amer) 68, Glucose 166 H, Calcium 9.5, Total Bilirubin 0.8, AST 32, ALT 28, Alkaline Phosphatase 111, Total Protein 7.1, Albumin 4.1, Globulin 3.0, Albumin/Globulin Ratio 1.4 06/16/22 09:55: Blood Type A Positive, Antibody Screen Negative
--- NOTE | 2022-06-16 17:37 | PC.NURSE ---
pt alert x4. vss. c/o pain at rt knee at frequent intervals, treated per mar with relief. pt has polar pack to rt knee. no concerns at this time. cb and personal items within reach. sister in law at bedside.
[2022-06-17] VITALS: BP 174/78; PULSE 97; RESP 18; TEMP 37.1; O2SAT 95
[2022-06-17 04:00] VITALS: BP 156/88; PULSE 95; RESP 18; TEMP 36.9; O2SAT 95; BMI 41.0
--- NOTE | 2022-06-17 06:07 | PC.NURSE ---
Patient is A&Ox3. Had total knee surgery yesterday. Complained of pain multiple times through the night. Gave prn meds. Patient tolerated those well and said they helped. NS @ 75. Dressing on right knee is CDI. Polar pack is in place. ESVIN at bedside
[2022-06-17 06:56] LABS: Basophils % 0.4 % (0.1-2.0); Eosinophils # 0.1 K/mm3 (0.0-0.4); Eosinophils % 0.5 % (0.1-12.0); Hematocrit 38.6 % (37.0-47.0); Lymphocytes # 1.9 K/mm3 (0.7-4.5); Mean Corpuscular HGB Conc 31.1 g/dL (31.8-35.4); Mean Corpuscular Hemoglobin 29.6 pg (27.0-31.2); Mean Corpuscular Volume 95.3 fl (81-99); Mean Platelet Volume 8.7 fl (7.4-10.4); Monocytes # 0.9 K/mm3 (0.1-1.0); Monocytes % 7.8 % (1.7-9.3); Neutrophils # 8.8 K/mm3 (1.8-7.8); Neutrophils % 75.3 % (37.0-80.0); Platelet Count 209 K/mm3 (142-424); Red Blood Count 4.05 M/mm3 (4.20-5.40); Red Cell Distribution Width 13.4 % (11.5-17.5); White Blood Count 11.6 K/mm3 (4.8-10.8)
[2022-06-17 07:06] LABS: Blood Urea Nitrogen 15 mg/dl (7-17); Calcium 8.4 mg/dl (8.4-10.2); Carbon Dioxide 26 mmol/L (22.0-30.0); Chloride 107 mmol/L (98-107); Creatinine Clearance Estimated 91 mL/min (50-200); Estimated Glomerular Filt Rate 73 ml/min (>60); GFR (African American) 88 ML/MIN (>60); Glucose 215 mg/dl (74-100); Sodium 138 mmol/L (136-145)
[2022-06-17 07:18] LABS: Anion Gap 8.5 mEq/L (5-15); Potassium 3.5 mmoL/L (3.5-5.1)
[2022-06-17 08:00] VITALS: BP 159/96; PULSE 100; RESP 16; TEMP 37.6; O2SAT 95
--- NOTE | 2022-06-17 09:39 | HMH.OTEV ---
OT Inpatient Evaluation Rehab OT IP Evaluation Start: 06/16/22 12:40 Freq: ONCE Status: Active Protocol: Document 06/17/22 09:33 [facility] (Rec: 06/17/22 09:39 [facility] [id number]) Rehab OT IP Assessment Subjective History Pt oriented x3 on arrival. Pt agreeable to engage in therapy evaluation. Pt's sister in law present and supportive. Pt was admitted on 06/16/22 following right knee replacement. Prior to being in the hosptial, pt lived with her brother and sister in law. Pt and ESVIN both report she was independent with all ADLs and was able to complete some IADLs independently. She did not require any type of AE during ambulation or daily activities. Pt has a past medical history of: Emphysema/COPD History of stroke Schizo affective schizophrenia Subjective I don't know if I can. Objective Patient Orientation Person,Place,Birthday Upper Extremity Gross ROM WFL Bed Mobility bed mobility-scooting,bed mobility - supine/sit Assist Level Minimal x 1 (25% assist) Transfer Training Sit/Stand Transfer Assist Level Minimal x 1 (25% assist) Chair Transfer Ability Minimal x 1 (25% assist) Chair Transfer Technique Sit to/from Ambulatory Chair Transfer Assistive Devices Rolling Walker Rehab OT IP prob,goals,plan Problems Date of Evaluation: 06/17/22 OT IP Problems Bed Mobility,Transfers,Balance ,Self care,Safety Rehab Potential Rehab Potential Good Equipment Needs Assistive Devices Rolling / Wheeled Walker Plan OT intervention Plan Bed Mobility,Transfers,Balance ,Self care,Safety,Therapeutic Exercise OT Plan Frequency BID Duration LOS Discharge Goals Bed Mobility Ability Standby Assistance Sit to Stand Chair Transfer Ability Contact Guard/Hand Hold Chair Transfer Ability Contact Guard/Hand Hold Chair Transfer Technique Sit to/from Ambulatory Chair Transfer Assistive Devices Rolling Walker Lower B
--- NOTE | 2022-06-17 10:00 | EXP.ORTH.PN ---
Subjective *Date: 06/17/22 *Time: 08:45 Interval history: Ms. Saldivar is a pleasant 61-year-old female patient who underwent an uneventful right primary total knee replacement performed yesterday 06/16/[address] Alcantara. Today the patient is postop day #1. This morning she is sitting comfortably in a chair at the bedside and her [id number] is present. She reports some right knee pain as to be expected but states it is well controlled with as needed pain medication and rest. She states that she was able to sleep well last night. She states that she has ambulated very little but was able to transfer to the bedside chair without much difficulty. No history of any nausea, vomiting, or distal tingling/numbness. She denies any other symptoms or concerns at this time. Ortho Exam (Inpt) Vital signs and Labs for Last 24 Hours: Temp Pulse Resp BP Pulse Ox 99.6 F 100 H 16 159/96 H 95 06/17/22 08:00 06/17/22 08:00 06/17/22 08:00 06/17/22 08:00 06/17/22 08:00 Laboratory Results - last 24 hr 06/16/22 09:55: WBC 9.1, RBC 4.86, Hgb 14.6, Hct 46.9, MCV 96.4, MCH 30.0, MCHC 31.1 L, RDW 13.3, Plt Count 256, MPV 8.6, Neut % (Auto) 73.4, Lymph % (Auto) 19.7, Stewart % (Auto) 4.6, Eos % (Auto) 1.4, Baso % (Auto) 0.8, Neut # (Auto) 6.7, Lymph # (Auto) 1.8, Stewart # (Auto) 0.4, Eos # (Auto) 0.1, Baso # (Auto) 0.1 06/16/22 09:55: Sodium 142, Potassium 4.2, Chloride 104, Carbon Dioxide 32 H, Anion Gap 10.2, BUN 13, Creatinine 1.00, Estimated Creat Clear 89, Estimated GFR 56 L, Est GFR ( Amer) 68, Glucose 166 H, Calcium 9.5, Total Bilirubin 0.8, AST 32, ALT 28, Alkaline Phosphatase 111, Total Protein 7.1, Albumin 4.1, Globulin 3.0, Albumin/Globulin Ratio 1.4 06/16/22 09:55: Blood Type A Positive, Antibody Screen Negative 06/17/22 06:28: WBC 11.6 H D, RBC 4.05 L, Hgb 12.0 L D, Hct 38.6, MCV 95.3, MCH 29.6, MCHC 31.1 L, RDW 13.4, Plt Count 209, MPV 8.7, Neut % (Auto) 75.3, Lymph % (Auto) 16.0, Stewart % (Auto) 7.8, Eos % (Auto) 0.5, Baso % (Auto) 0.4, Neut # (Auto) 8.8 H, Lymph # (Auto) 1.9, Stewart # (Auto) 0.9, Eos # (Auto) 0.1, Baso # (Auto) 0.0 06/17/22 06:28: Sodium 138, Potassium 3.5, Chloride 107, Carbon Dioxide 26, Anion Gap 8.5, BUN 15, Creatinine 0.80, Estimated Creat Clear 91, Estimated GFR 73, Est GFR ( Amer) 88 D, Glucose 215 H D, Calcium 8.4 I & O for Labs for Last 24 Hours: Intake & Output 06/14/22 06/15/22 06/16/22 06/17/22 23:59 23:59 23:59 23:59 Intake Total 760 / 760 480 / 480 Output Total 400 / 400 170 / 170 Balance 360 / 360 310 / 310 Weight 219 lb 4 oz 217 lb 6 oz Head: Present normocephalic and atraumatic Eyes: Present as per HPI ENT: Present normal exam Neck: Present normal inspection, full ROM and trachea midline; Absent lymphadenopathy Respiratory: Present normal respiratory effort, able to speak in complete sentences and symmetric chest movement; Absent accessory muscle use Cardiac: Present Reg Rate and Rhythm GI: Present soft; Absent tenderness Comment:: Upon examination of the right knee: Dressings present are clean, dry, and intact. No evidence of drainage or bleeding noted. Attempted movements of the right knee are somewhat painful. Thigh and calf are soft and nontender; Homans' sign is negative. No clinical evidence of DVT or compartment syndrome noted. Posterior tibial pulses 1+; cap refill is brisk. Distal neurovascular status is intact; sensation light touch is grossly intact throughout. Patient is actively mobilizing the foot, ankle, and toes. Diagnostic imaging: Postoperative x-ray performed at [facility] on 06/16/2022 reviewed along with radiologist report. X-ray of the right knee demonstrates a total knee arthroplasty with orthopedic components in satisfactory alignment and fixation. No evidence of orthopedic complications noted. Radiologist report is as follows: FINDINGS: Two views of the right knee were obtained. There are postoperative changes from knee arthroplasty witho
[2022-06-17 10:15] LABS: Coronavirus 19, PCR Not Detected (NotDetected); Influenza A, PCR Not Detected (NotDetected); Influenza B, PCR Not Detected (NotDetected)
--- NOTE | 2022-06-17 11:23 | HMH.PTEV ---
Physical Therapy Evaluation Rehab PT IP Evaluation Start: 06/16/22 12:40 Freq: ONCE Status: Active Protocol: Document 06/17/22 09:00 PHORaffiFRANCISCO (Rec: 06/17/22 11:23 PHORNE [id number]) Subjective/History History History 61 yowf adm to [facility] for R TKA. She now has expected post-op pain. She was independent with all mobility prior to adm without AD, lived with family who assisted her with any ADL needs. Subjective Subjective Pt reports pain in the R LE. Rehab PT IP Eval Objective Appearance Patient Behavior Appropriate Patient Orientation Person,Place,Time Difficulty following instructions none Speech Pattern Clear Ambulation Patient Able to Ambulate Yes Ambulation Observation IP General Gait Pattern Observation Antalgic Gait,Shuffling Step, Decrease Stride Lngth (R), Decrease Stride Lngth (L) Ambulation Distance (feet) 5 Ambulation Assistive Device Rolling Walker Ambulation Ability Minimal x 1 (25% assist) Balance Ability to Arise Able, uses arms to help Sitting Balance Steady, safe Standing Balance Steady, wide stance Dynamic Sitting Balance Ability Good Dynamic Standing Balance Ability Fair Transfers Bed Transfer Ability Minimal x 1 (25% assist) Chair Transfer Ability Minimal x 1 (25% assist) Sit to Stand Bed Transfer Ability Minimal x 1 (25% assist) Sit to Stand Chair Transfer Ability Minimal x 1 (25% assist) Rehab PT IP prob,goals,plan Problems Date of Evaluation: 06/17/22 PT IP Problems Bed Mobility,Transfers,Gait Rehab Potential Rehab Potential Good Plan PT Intervention Plan Bed Mobility,Transfers,Gait, Therapeutic Exercise PT Plan Frequency BID Duration LOS Discharge Goals Bed Transfer Ability Contact Guard/Hand Hold Sit to Stand Chair Transfer Ability Contact Guard/Hand Hold Ambulation Assistive Device Rolling Walker Ambulation Distance (feet) 10 Discharge Plan PT Discharge Plan Pt is currently most appropriate for rehab placement once medically stable for d/c. G -code Required No Eval Complexity Eval Charge Codes 83898 - Moderate Complexity PHYSICIAN CERTIFICATION: I certify the specified therapy services for Jackie Saldivar are required, authorized, and reviewed every 30 days.
--- NOTE | 2022-06-17 14:47 | EXP.DC.SUM ---
General Admission date:: 06/16/22 Discharge date: 06/17/22 HPI HPI HPI: Ms. Saldivar is a 61-year-old female with history of obesity, hypertension, chronic right knee pain, and schizophrenia who is followed closely by orthopedics. She was brought in electively today for total right knee arthroplasty due to severe right knee pain and arthritis limiting mobility and affecting her quality of life. She has failed exhaustive conservative treatment measures. Medicine consulted for admission and medical management. Patient tolerated procedure well without difficulty or complication. She is evaluated after arriving to the floor. Hemodynamically stable. Only complaint is mild right knee pain. Denies any chest pain, shortness of breath, nausea, vomiting, diarrhea. Reports her last bowel movement was yesterday. Is fatigued and awakens to answer questions but falls back to sleep. Hospital Course Hospital Course Hospital Course: 61-year-old female with history of primary osteoarthritis of right knee, admitted for postop management after total right knee replacement.? Admitted to medicine for further management.? Problems addressed as follows: Right total knee replacement -Orthopedics consulted, appreciate their recommendations. Patient tolerated procedure well. Stable pain regimen at this time. Tolerating Toradol and oxycodone 2-3 times a day as needed. PT evaluated, patient may ambulate weightbearing as tolerated on right lower extremity. Stable for discharge to longterm facility for rehab to facilitate getting home. Patient is scheduled for her first postoperative follow-up with orthopedics (Dr. Alcantara) In approximately 3 weeks on 07/08/2022 for wound inspection and repeat x-rays. Orthopedics recommends Aspirin 325 mg daily for postop DVT prophylaxis Hyperlipidemia, continue home Lipitor Schizophrenia/mood disorder, continue home medications including Effexor daily, paliperidone daily, and trazodone for sleep. Obesity, complicates all aspects of her care Full code Regular diet Aspirin for prophylaxis Last bowel movement this morning. Stable for discharge to nursing facility. Controlled substance prescription sent electronically to [facility] pharmacy. Exam Data for Last 24 hours Vital signs and Labs for Last 24 Hours: Temp Pulse Resp BP Pulse Ox 99.6 F 100 H 16 159/96 H 95 06/17/22 08:00 06/17/22 08:00 06/17/22 08:00 06/17/22 08:00 06/17/22 08:00 Laboratory Results - last 24 hr 06/17/22 06:28: WBC 11.6 H D, RBC 4.05 L, Hgb 12.0 L D, Hct 38.6, MCV 95.3, MCH 29.6, MCHC 31.1 L, RDW 13.4, Plt Count 209, MPV 8.7, Neut % (Auto) 75.3, Lymph % (Auto) 16.0, [place] % (Auto) 7.8, Eos % (Auto) 0.5, Baso % (Auto) 0.4, Neut # (Auto) 8.8 H, Lymph # (Auto) 1.9, [place] # (Auto) 0.9, Eos # (Auto) 0.1, Baso # (Auto) 0.0 06/17/22 06:28: Sodium 138, Potassium 3.5, Chloride 107, Carbon Dioxide 26, Anion Gap 8.5, BUN 15, Creatinine 0.80, Estimated Creat Clear 91, Estimated GFR 73, Est GFR ( Amer) 88 D, Glucose 215 H D, Calcium 8.4 06/17/22 10:08: SARS-CoV-2 (PCR) Not detected, Influenza A Untype (PCR) Not detected, Influenza Type B (PCR) Not detected I & O for Last 24 hours: Intake & Output 06/14/22 06/15/22 06/16/22 06/17/22 23:59 23:59 23:59 23:59 Intake Total 760 / 760 720 / 720 Output Total 400 / 400 170 / 170 Balance 360 / 360 550 / 550 Weight 99.45 kg 98.6 kg Constitutional Constitutional: no acute distress, morbidly obese and cooperative *Routine HEENT Exam Head: Present normocephalic Eye: Present EOMI and PERRL ENT: Present mucous membranes moist *Routine Neck Exam Neck: Present supple; Absent lymphadenopathy *Routine Respiratory Exam Respiratory: Present CTA bilaterally *Routine Cardiovascular Exam Cardiovascular: Present RRR *Routine Abdominal Exam Abdominal: Present soft and normoactive bowel sounds; Absent tenderness *Routine Rectal Exam Patient deferred: visual exam *Routine E
--- NOTE | 2022-06-18 14:48 | CARE MANAGER ---
Patient is adjusting well to SNF. Denies questions or concerns. GOMEZ Sterling
--- NOTE | 2022-06-19 11:04 | EXP.ANES.II ---
[facility] Anesthesia Record Part II Anesthesia Record Part II Discharge Time: 13:23 Destination: Second Floor PACU nurse assessment reviewed?: Yes Patient Condition:: Good Anesthesia Complications:: None Swallowing reflex intact?: Yes Cyanosis?: No Blood Pressure: 147/82 Pulse Rate: 80 Temperature: 97.5 F Mental Status: Alert & Oriented Pain level:: 0 Nausea and/or vomitting:: None Intake, IV Amount: 0
[2022-06-19 11:05] VITALS: BP 147/82; PULSE 80; TEMP 36.4
== END 2022-06-17 16:20 ==
LOC: 2ND 10:52
PROVIDERS: Orthopaedic Surgery; Admitting Provider Internal Medicine Adolescent Medicine; PCP Family Medicine; Visit Provider Internal Medicine Adolescent Medicine
PROC: (CPT 27447; principal; 2022-06-16 10:00)
DX: M17.11 Unilateral primary osteoarthritis, right knee (principal); E78.5 Hyperlipidemia, unspecified; I10 Essential (primary) hypertension; F20.9 Schizophrenia, unspecified; E66.01 Morbid (severe) obesity due to excess calories; Z68.41 Body mass index [BMI] 40.0-44.9, adult; Z79.899 Other long term (current) drug therapy; Z20.822 Contact with and (suspected) exposure to COVID-19
CPT/HCPCS: 27447; G0378; 36415; 71045; 73560; 80048; 80053; 85025; 86850; 96374; 97162; 97166; 97530; 99285; C1713; C1776; C9803; J0131; U0003; U0005

== ENCOUNTER → 2022-07-08 12:41 | Outpatient (CLI) | payer MEDICARE, BC, SELFPAY ==
--- NOTE | 2022-07-08 12:43 | XR_ITS ---
FINAL REPORT CLINICAL HISTORY: s/p Rt TKA COMPARISON: 06/16/2022 FINDINGS: Right knee Three views were obtained. There is no acute fracture or dislocation. The patient is status post knee arthroplasty. No soft tissue abnormality is identified. IMPRESSION: Postsurgical changes. Reviewed, Interpreted and Dictated by Fortino Brown III, MD Transcribed by Virginia Lane Authenticated and [facility]
== END ==
LOC: RAD 12:43
PROVIDERS: PCP Emergency Medicine; Visit Provider Orthopaedic Surgery
DX: Z96.651 Presence of right artificial knee joint (principal); M25.561 Pain in right knee
CPT/HCPCS: 73562

== ENCOUNTER → 2022-10-20 11:30 | Outpatient (CLI) | payer MEDICARE, BC, SELFPAY ==
[2022-10-20 14:14] LABS: Basophils % 0.3 % (0.1-2.0); Eosinophils % 0.5 % (0.1-12.0); Hematocrit 45.3 % (37.0-47.0); Hemoglobin 14.2 g/dL (12.2-16.2); Lymphocytes # 1.7 K/mm3 (0.7-4.5); Lymphocytes % 21.6 % (10-50); Mean Corpuscular HGB Conc 31.3 g/dL (31.8-35.4); Mean Corpuscular Hemoglobin 28.9 pg (27.0-31.2); Mean Corpuscular Volume 92.4 fl (81-99); Mean Platelet Volume 8.9 fl (7.4-10.4); Monocytes # 0.5 K/mm3 (0.1-1.0); Monocytes % 5.8 % (1.7-9.3); Neutrophils # 5.7 K/mm3 (1.8-7.8); Neutrophils % 71.8 % (37.0-80.0); Platelet Count 251 K/mm3 (142-424); White Blood Count 7.9 K/mm3 (4.8-10.8)
[2022-10-20 14:15] LABS: Alanine Aminotransferase 24 U/L (12-78); Albumin Level 3.8 g/dl (3.5-5.0); Albumin/Globulin Ratio 1.5 (1.1-1.8); Alkaline Phosphatase 122 U/L (38-126); Anion Gap 15.4 mEq/L (5-15); Aspartate Amino Transferase 29 U/L (14-36); Bilirubin,Total 0.5 mg/dl (0.2-1.3); Blood Urea Nitrogen 13 mg/dl (7-17); Calcium 9.3 mg/dl (8.4-10.2); Carbon Dioxide 28 mmol/L (22.0-30.0); Chloride 100 mmol/L (98-107); Estimated Glomerular Filt Rate 73 ml/min (>60); GFR (African American) 88 ML/MIN (>60); Globulin 2.6 g/dL (1.3-3.2); Glucose 159 mg/dl (74-100); Potassium 4.4 mmoL/L (3.5-5.1); Sodium 139 mmol/L (136-145); Total Protein,Serum 6.4 g/dl (6.3-8.2)
[2022-10-20 14:55] LABS: Hemoglobin A1C 6.9 % (4.0-6.0)
== END ==
PROVIDERS: PCP Nurse Practitioner Family; Visit Provider Nurse Practitioner Family
DX: R39.9 Unspecified symptoms and signs involving the genitourinary system (principal); I10 Essential (primary) hypertension; R73.03 Prediabetes
CPT/HCPCS: 80053; 83036; 85025; 87086

== ENCOUNTER → 2023-04-07 13:40 | Outpatient (CLI) | payer MEDICARE, BC, SELFPAY ==
--- NOTE | 2023-04-07 13:44 | XR_ITS ---
FINAL REPORT CLINICAL HISTORY: right knee pain COMPARISON: 07/08/2022 FINDINGS: Right knee Three views were obtained. There is no acute fracture or dislocation. Patient is status post right knee arthroplasty. There is suprapatellar soft tissue calcifications, new from prior. IMPRESSION: New suprapatellar soft tissue calcifications. Reviewed, Interpreted and Dictated by Fortino Brown III, MD Transcribed by Virginia Lane Authenticated and [facility]
--- NOTE | 2023-04-07 13:44 | XR_ITS ---
FINAL REPORT CLINICAL HISTORY: left knee pain COMPARISON: 05/13/2021 FINDINGS: Left knee Three views were obtained. There is no acute fracture or dislocation. There are moderate degenerative changes. There is medial compartment narrowing. Findings are similar to prior. No soft tissue abnormality is identified. IMPRESSION: Degenerative changes as above. Reviewed, Interpreted and Dictated by Fortino Brown III, MD Transcribed by Virginia Lane Authenticated and [facility]
== END ==
LOC: RAD 13:42
PROVIDERS: PCP Nurse Practitioner Family; Visit Provider Orthopaedic Surgery
DX: M25.562 Pain in left knee (principal); M25.561 Pain in right knee
CPT/HCPCS: 73562

== ENCOUNTER 2023-05-14 13:00 | Outpatient (RCR) | payer MEDICARE, BC, SELFPAY ==
--- NOTE | 2023-04-16 15:08 | HMH.PTOPEV ---
PT Outpatient Evaluation Rehab PT Outpatient Evaluation Start: 04/16/23 14:33 Freq: Status: Active Protocol: Document 04/16/23 14:33 [facility] (Rec: 04/16/23 14:57 [facility] [id number]) E-signed By Jeferson Mcgill, PT Outpatient Therapy Subjective History Subjective History Patient is a 62 year old female presenting to outpatient PT with reports of R knee pain S/P R TKA 06/28/22. Patient reports hx of knee pain approx 5 years prior to surgery. Patient is planning on having L TKA once found medically stable by MD. Comorbidities include hx of HTN and HL. No recent RLE imaging to report. New diagnosis of cancer in past 12 No months? Chief Complaint Pain,Stiff,Swelling,Gives out/ Unstable Symptom Type Ache,Dull Symptoms Relieved By Rest/Positioning,OTC Meds Symptoms Aggravated By Standing,Physical Activity, Walking Prior Functional Limitations None Current Functional Limitations Housework,Standing,Squatting, Walking,Stairs,Balance Symptom Description Intermittent Level of pain today (0-10) 2 Pain scale - at its best (0-10) 0 Pain scale - at its worst (0-10) 10 Hip/Knee Eval Gait Observation General Gait Pattern Observation No Deviations/Normal Assistive Device Assistive Devices None / NA Palpation Tenderness right Knee Palpation Finding Tenderness Knee Palpation Overall Comment M/L joint line 2/4 MMT Hip Flexion Strength Grade 4- Good- Hip Abduction Strength Grade 4- Good- Hip Adduction Strength Grade 4- Good- Hip Extension Strength Grade 4- Good- Hip External Rotation Strength Grade 3+ Fair+ Hip Internal Rotation Strength Grade 3+ Fair+ Knee Extension Strength Grade 4- Good- Knee Flexion Strength Grade 4 Good ROM Hip ROM Reason Not Measured Within Functional Limits Knee Extension Active Range of Motion ( -5 degrees) Knee Flexion Active Range of Motion ( 119 degrees) Special Tests Knee Anterior Vicenta Test Negative Right Knee Pivot Shift Test Negative Right Knee Valgus Stress Test Negative Right Knee Varus Stress Test Negative Right Knee Brian Test Negative Right Lower Extremity Functional Index Activities Today, do you or would you have any difficulty at all with: a.Any of your usual work, housework or Quite a bit of difficulty school activities b. Your usual hobbies, recreational or Quite a bit of difficulty sporting activities c. Getting into or out of the bath Quite a bit of difficulty d. Walking between rooms No difficulty e. Putting on your shoes or socks No difficulty f. Squatting No difficulty g. Lifting an object, like a bag of No difficulty groceries from the floor h. Performing light activities around No difficulty your home i. Performing heavy activities around No difficulty your home j. Getting into or out of a car No difficulty k. Walking 2 blocks Quite a bit of difficulty l. Walking a mile Quite a bit of difficulty m. Going up or down 10 stairs (about 1 Quite a bit of difficulty flight of stairs) n. Standing for 1 hour Quite a bit of difficulty o. Sitting for 1 hour Quite a bit of difficulty p. Running on even ground Quite a bit of difficulty q. Running on uneven ground Quite a bit of difficulty r. Making sharp turns while running fast Quite a bit of difficulty s. Hopping Quite a bit of difficulty t. Rolling over in bed No difficulty LEFI Score Lower Extremity Functional Index Score 44 Outpatient Therapy Assessment Impairments Problems/Impairmments Palpation Tenderness,Impaired Range of Motion,Impaired Strength,Impaired Walking, Impaired Standing,Impaired Household Care,Impaired Stair Climbing,Impaired Incline Stepping,Impaired Stepping on Uneven Surface,Impaired Squatting,Impaired Bending, Impaired Recreational Activities,Subjective C/O Pain Prognosis Rehab Potential Good Clinical Impression Consistent with Diagnosis Yes Short Term Goals Number of Weeks 2 Decrease Subjective C/O Pain Yes: 5/10 Patient to be Ind w/ HEP Yes Longterm Goals Number of Weeks 4-6 Decreased Palpation Tenderness Yes Increase Range of Motion Yes: 0-125 Increase Strength Yes: 5/5 Increase Ability to Walk Yes: 30 min without difficulty Increase Ability to Stand Yes: Improve Ability to Climb Stairs Yes: 1 flight up/down without difficulty Decrease Subjective C/O Pain Yes: 2/10 at worst Outpatient Therapy Plan of Care Treatment Plan May Include Therapeutic Exercise Including Home Yes Exercise Program Manual Therapy Techniques Yes Neuromuscular Re-education Yes Therapeutic Activities to Return to Yes Previous Functional/Work Level Gait Training Yes ADL/Self Care Education Yes Dry Needling Yes Thermal Modalities Yes Electrical Stimulation Yes Ultrasound/Phonophoresis Yes Iontophoresis Yes Orthotics/Bracing/Splinting Yes Vasopneumatic Compression Pump Yes Massage Yes Manual Lymphatic Drainage Yes Eval/Re-Eval Yes Frequency Times per week 2 Duration Number of Weeks 4-6 Addendums This patient is a candidate for social No or vocational rehab? Patient/Guardian verbally acknowledges Yes understanding of treatment program and consents to further treatment? Patient/Guardian verbally acknowledges Yes understanding of diagnosis, prognosis and goals for treatment? Eval Complexity PT Charges 88507 - Moderate Complexity Shoulder/Elbow Eval Shoulder Objective Measurements Elbow Objective Measurements PHYSICIAN CERTIFICATION: I certify the specified therapy services for Jackie Saldivar are required, authorized, and reviewed every 30 days.
--- NOTE | 2023-05-14 14:58 | HMH.RHREAS ---
Rehab Reassessment Rehab OP Re-assessment Start: 04/16/23 14:33 Freq: Status: Active Protocol: Document 05/14/23 14:48 [facility] (Rec: 05/14/23 14:58 [facility] [id number]) E-signed By Jeferson Mcgill, PT Lower Extremity Functional Index Activities Today, do you or would you have any difficulty at all with: a.Any of your usual work, housework or A little bit of difficulty school activities b. Your usual hobbies, recreational or No difficulty sporting activities c. Getting into or out of the bath Extreme difficulty or unable to perform activity d. Walking between rooms No difficulty e. Putting on your shoes or socks Quite a bit of difficulty f. Squatting No difficulty g. Lifting an object, like a bag of A little bit of difficulty groceries from the floor h. Performing light activities around A little bit of difficulty your home i. Performing heavy activities around Quite a bit of difficulty your home j. Getting into or out of a car Extreme difficulty or unable to perform activity k. Walking 2 blocks A little bit of difficulty l. Walking a mile Quite a bit of difficulty m. Going up or down 10 stairs (about 1 No difficulty flight of stairs) n. Standing for 1 hour Quite a bit of difficulty o. Sitting for 1 hour Quite a bit of difficulty p. Running on even ground Extreme difficulty or unable to perform activity q. Running on uneven ground Extreme difficulty or unable to perform activity r. Making sharp turns while running fast Extreme difficulty or unable to perform activity s. Hopping Extreme difficulty or unable to perform activity t. Rolling over in bed No difficulty LEFI Score Lower Extremity Functional Index Score 37 Rehab Re-assessment Subjective Subjective Patient reports 50% improvement since start of care. Objective Objective Notes AROM R knee: -5-117 MMT: 4+/5 grossly Pain: 0/10 today; 3/10 at worst over past week Neuro: WNL Assessment Progress Assessment Progressing as Expected Assessment Notes Patient would benefit from continuing with skilled PT interventions in order to address functional limitations with standing/ambulatory difficulty related to R knee. Patient goals met STG's Goals Not Met LTG's Revised Goals NA Plan Plan Continue with current POC. Frequency of Therapy 2x/week Duration of therapy 4 weeks Time and Billing Re-Eval Time 14 Re-Eval Billing Units 1 PHYSICIAN CERTIFICATION: I certify the specified therapy services for Jackie Durand [facility] [place] are required, authorized, and reviewed every 30 days.
== END 2023-05-14 14:00 | disposition home or self-care (01) ==
LOC: PT 13:00
PROVIDERS: PCP Nurse Practitioner Family; Visit Provider Orthopaedic Surgery
DX: M25.561 Pain in right knee (principal); Z96.651 Presence of right artificial knee joint; Z47.1 Aftercare following joint replacement surgery; M17.12 Unilateral primary osteoarthritis, left knee
CPT/HCPCS: 97110; 97163; 97164; 97530

== ENCOUNTER 2023-07-14 09:01 | Outpatient (CLI) | payer MEDICARE, BC, SELFPAY ==
--- NOTE | 2023-07-14 09:06 | MM_ITS ---
PROCEDURE INFORMATION: Exam: MG Bilateral Screening 3D Mammography Exam date and time: 07/14/2023 9:08 AM Age: 62 years old Clinical indication: Screening examination TECHNIQUE: Imaging protocol: Bilateral Screening tomosynthesis and 2D mammography including computer-aided detection (CAD) when performed. COMPARISON: 1. MG MM DIG SCREENING MAMM BI W/CAD 09/06/2020 8:47 AM 2. MG DIG MAMM-SCREEN BOBO 10/20/2018 10:17 AM FINDINGS: MAMMOGRAPHY: Breast composition: There are scattered areas of fibroglandular density. Mass: No new or suspicious masses Architectural distortion: None. Calcifications: No suspicious calcifications. Asymmetric density: None. Skin thickening: None. Axillary adenopathy: None. IMPRESSION: No mammographic evidence of malignancy. Annual screening is recommended unless otherwise clinically indicated. ASSESSMENT: BI-RADS Category 1: Negative
--- NOTE | 2023-07-14 09:06 | XR_ITS ---
FINAL REPORT CLINICAL HISTORY: Osteoporosis screening COMPARISON: None FINDINGS: Using L1-4, the bone mineral density of the spine is 1.102 g/cm2, corresponding to T-score of 0.5 which is within normal limits. Using the left hip, the bone mineral density of the femoral neck is 0.773 g/cm2, corresponding to a T-score of -1.4 which is consistent with low bone density. Using the right hip, the bone mineral density of the femoral neck is 0.822 g/cm2, corresponding to a T-score of -1.0 which is within normal limits. FRAX 10 year fracture risk is 0.5% for a hip fracture and 7.1% for a major osteoporotic fracture. NOTE: T-score: Standard deviation compared with peak bone mass of young adult mean. *Following the recommendations of the International Society of Bone densitometry, classification of hip BMD is based on the lower of two T-scores; total hip or femoral neck. IMPRESSION: Diminished bone mineral density consistent with low bone density. Reviewed, Interpreted and Dictated by Fortino Brown III, MD Transcribed by Alisha Diamond Authenticated and [facility]
== END 2023-07-14 23:59 ==
LOC: RAD 09:01
PROVIDERS: PCP Nurse Practitioner Family; Visit Provider Nurse Practitioner Family
DX: Z78.0 Asymptomatic menopausal state; Z12.31 Encounter for screening mammogram for malignant neoplasm of breast
CPT/HCPCS: 77063; 77067; 77080

== ENCOUNTER 2025-02-28 07:15 | Outpatient (CLI) | payer MEDICARE, SELFPAY ==
--- OUTSIDE RECORDS SUMMARY | 2025-02-28 07:19 | XMS_ITS | Patient Health Record ---
Author Organization [facility] Address [address] [place] [id number] Care Team Providers Care Body Liner Name Role Phone Raffi Morales Primary Care Provider Allergies Allergen (clinical drug ingredient) Drug/Non Drug Allergy documented on EMR Reaction Allergy Type Onset Date Status olmesartan Benicar swelling Drug Allergy Active Medications Medication SIG (Take, Route, Frequency, Duration) Notes Start Date End Date Status Atorvastatin Calcium 40 MG 1 tab(s) orally once a day (at bedtime) 08/01/2014 Active metFORMIN HCl ER 500 MG 1 tab(s) orally once a day; Duration: 90 Active Topamax 25 MG 1 tab(s) orally 2 ti mes a day Active Sertraline HCl 50 MG 1 tab(s) orally once a day Active Invega Sustenna 156 MG/ML intramuscularl y once a month Active oxyBUTYnin Chloride 5 MG 1 tab(s) orally 2 times daily; Duration: 08/26/2015 Active Lisinopril 10 MG 1 tab(s) orally once a day 2015 Active Meloxicam 7.5 MG 1 tab(s) orally once a day; Duration: 09/28/2015 Active Immunizations Vaccine Route Administration Date Status Comme nts xFluzone Intradermal (18-64yrs)-trivalent-medic are pts ID Intradermal 03/30/2014 Administered Fluzone Quad-Medicare (6months&older) IM Intramuscular 04/08/2015 Administered Problems Problem Type SNOMED Code ICD Code Onset Dates Problem Status W/U Status Risk Notes Problem Hypothyroidism (08844152) Hypothyroidism (acquired) (244.9) Active confirmed Problem Type II diabetes mellitus without complication (354724929) DM II [Diabetes mellitus type II] (250.00) Active confirmed Problem Pure hyperglyceridemia (118395574) Hypertriglyceride tod, essential (272.1) Active confirmed Problem Hyperlipidaemia (16615491) Hyperlipidemia NOS (272.4) Active confirmed Problem Essential hypertension (73964032) HTN [Hypertension] (401.9) Active confirmed Problem Congestive heart failure (disorder) (51774771) CHF [Congestive heart failure], unspecified (428.0) Active confirmed Problem Aphasia (78549023) Aphasia (438.11) Active conf irmed Problem dysphagia, after CVA (438.82) Active confirmed Problem Hyperlipidemia (67005284) Hyperlipidemia (272.4) Active confirmed Problem Tobacco use (058663571) Tobacco use disorder (305.1) Active confirmed Problem Cerebrovascular accident (307542964) CVA (436) Active confirmed Problem Hypertension (24370072) Hypertension NOS (401.9) Active confirmed Problem Ataxia (83078928) Ataxia (438.84) Active confir med Problem Overactive bladder (652733989) Overactive bladder (596.51) Active confirmed Problem Essential hypertension (14364438) Essential hypertension (I10) Active confirmed Problem Type II diabetes mellitus without complication (789433147) Type 2 diabetes mellitus without complication (E11.9) Active confirmed Problem COPD - Chronic obstructive pulmonary disease (73953828) Chronic obstructive pulmonary disease, unspecified COPD type (J44.9) Active confirmed Plan Of Treatment No Information Insurance Providers Payer Name Payer Address Payer Phone Subscriber Number Group Number Insured Name Patient Relationship to Insured Coverage Start Date Coverage End Date MEDICARE PART B [address] [place] [id number] MONTICELLO VANESSA EARL Self - patient is the insured [facility] [address] [place] [address] [phone] [id number] MONTICELLO VANESSAEARL Self - patient is the insured Medical (General) History Medical History History ICD Code schizoaffective D/O followed by Colby orellana Hypothyroidism low back pain Hypertension hyperlipidemia CVA, October 2013 type 2 diabetes osteoarthritis, knees overactive bladder tobacco abuse COPD, Dx: 2014 Surgical History Surgery Date(Month/Year) rt knee arthroscopy 8/06 Hospitalization History Reason Date(Month/Year) [facility] ER, inner ear infection November 2007 [facility]- Dehydration & S yncope 08/29/12-08/31/12 [facility] ER- Allergic Reaction 2012
--- OUTSIDE RECORDS SUMMARY | 2025-02-28 07:19 | XMS_ITS | Clinical Summary ---
Author Organization [facility] Address [address] [place] [address] Phone Care Team Providers Care Tick Sewer Name Role Phone Unavailable Primary Care Provider Unavailabl e Allergies No known active allergies Medications * This document contains information received from the source organization and may not represent a complete record from that organization. No known medications Active Problems Problem Noted Date Diagnosed Date Primary insomnia 04/11/2016 Schizophrenia, undifferentiated 04/11/2016 Medication monitoring encounter 04/11/2016 Recurrent depressive disorder, current episode m ild 04/11/2016 Social History Tobacco Use Types Packs/Day Years Used Date Smoking Tobacco: Never Assessed Comments Unknown Sex and Gender Information Value Date Recorded Sex Assigned at Not on file Legal Sex Female 12:50 PM EDT Gender Identity Not on file Sexual Orientation Not on file Obstetrics History Plan of Treatment Health Maintenance Due Date Last Done Comments Wellness Exam Medicare 12/30/1962 Hepatitis C Screening 12/30/1977 DTaP/TDaP/Td (1 - Tdap) 12/30/1978 Cervical Cancer Screening 12/30/1980 Pap Smear 12/30/1980 HPV/Pap Cotest 12/30/1989 Breast Cancer Screening 1999 Cologuard 12/30/2004 Colon Cancer Screening 12/30/2004 Colonoscopy 12/30/2004 FIT 12/30/2004 Sigmoidoscopy 12/30/2004 Virtual Colonography 12/30/2004 Pneumococcal Vaccine 50+ (1 of 1 - PCV) 12/30/2009 Zoster (1 of 2) 12/30/2009 Bone Density Screening 12/30/2024 COVID-19 Vaccine (1 - 2023-2 5 season) 2025 Influenza Vaccine (#1) 2025 Hepatitis B Vaccine Aged Out No longe r eligible based on patient's age to complete this topic Meningococcal B Vaccine Aged Out No l onger eligible based on patient's age to complete this topic Insurance MEDICARE [place] PART A AND B
[2025-02-28 07:24] LABS: Hematocrit 47.1 % (37.0-47.0); Hemoglobin 15.7 g/dL (12.2-16.2); Immature Granulocytes % 0.4 %; Mean Corpuscular HGB Conc 33.3 g/dL (31.8-35.4); Mean Corpuscular Hemoglobin 30.3 pg (27.0-31.2); Mean Corpuscular Volume 90.8 fl (81-99); Nucleated Red Blood Cells % 0 %; Platelet Count 250 K/mm3 (142-424); Red Blood Count 5.19 M/mm3 (4.20-5.40); Red Cell Distribution Width-SD 40.8 fL; White Blood Count 9.0 K/mm3 (4.8-10.8)
[2025-02-28 08:40] LABS: Cholesterol 165 mg/dl (140-200); HDL Cholesterol 47 mg/dl (40-60); Triglycerides 217 mg/dl (30-150)
[2025-02-28 08:56] LABS: 25-OH Vitamin D, Total 50.9 ng/mL (30-100)
== END 2025-02-28 23:59 | disposition home or self-care (01) ==
PROVIDERS: PCP Nurse Practitioner Family; Visit Provider Nurse Practitioner Family
DX: E55.9 Vitamin D deficiency, unspecified (principal); E78.5 Hyperlipidemia, unspecified; I10 Essential (primary) hypertension; Z11.4 Encounter for screening for human immunodeficiency virus [HIV]; Z11.59 Encounter for screening for other viral diseases
CPT/HCPCS: 36415; 80061; 82306; 85025